=== PATIENT | male | born 1980 | race Caucasian/White ===

== ENCOUNTER → 2017-07-31 | Outpatient (CLI) | payer OTHER ==
--- NOTE | 2017-07-31 09:59 | XR ---
Right wrist HISTORY: Trauma and pain 4 views of the right wrist, exam correlated to previous exam 07/22/2017 Bone mineralization, joint spaces and alignment are maintained. IMPRESSION: No fracture or dislocation evident. Consider wrist MRI for persistent symptoms.
== END | disposition home or self-care (01) ==
LOC: RADXRMAIN 09:41
PROVIDERS: ATTEND Emergency Medicine
DX: S63.501D Unspecified sprain of right wrist, subsequent encounter (principal)

== ENCOUNTER 2020-10-30 13:04 | Emergency (ER) | payer OTHER ==
[2020-10-30 13:09] VITALS: TEMP 98.7
[2020-10-30] MEDS ORDERED: LIDOCAINE 1% INJ 10MG/ML (20 ML MDV) SQ ONE (13:15)
[2020-10-30] MEDS ORDERED: MORPHINE SULFATE 2 MG/ML SYRINGE IM STA (13:15)
[2020-10-30] MEDS ORDERED: DIPH,PERTUS(ACELL)TETVAC-LF 0.5 ML VIAL IM ONE (13:28)
[2020-10-30] MEDS ORDERED: BACITRACIN OINT 1 EACH PACKET TOPICAL ONE (13:37)
--- NOTE | 2020-10-30 13:37 | ED ---
Upper Extremity HPI - General Chief Complaint: Extremity Injury, Upper Stated Complaint: Horse shoe nailed through finger Source: patient, RN notes reviewed Mode of arrival: ambulatory Limitations: no limitations - History of Present Illness Initial Comments: Patient is a 40-year-old male that presents to emergency department after getting a nail stuck in his left thumb. He noted that he was trying to nail a wooden horse shoe to a headboard and the nail must had not twisted it went into his thumb. There is clean entry and exit wounds but through the nail. He stated pain is about 8 out of 10 currently and has been constant. He did not take anything for pain at home. He was in no apparent distress or pain and had a good sense of humor walling up in bed. He denied any chest pain first breath headache nausea vomiting diarrhea constipation fever fatigue chills. - Related Data Home Medications Medication Instructions Recorded Confirmed Atorvastatin [Lipitor] 10 mg PO DAILY 07/22/17 07/22/17 Levothyroxine Sodium [Synthroid] 250 mcg PO DAILY 07/22/17 07/22/17 Losartan [Cozaar] 50 mg PO DAILY 07/22/17 07/22/17 allopurinoL [Zyloprim] 300 mg PO DAILY 07/22/17 07/22/17 Previous Rx's Medication Instructions Recorded Cephalexin [Keflex] 500 mg PO Q6HR #20 cap 10/30/20 Allergies Allergy/AdvReac Type Severity Reaction Status Date / Time No Known Allergies Allergy Verified 10/30/20 13:09 Review of Systems ROS Statement: Those systems with pertinent positive or pertinent negative responses have been documented in the HPI. ROS Other: All systems not noted in ROS Statement are negative. Past Medical History Past Medical History: Hyperlipidemia, Hypertension History of Any Multi-Drug Resistant Organisms: None Reported Past Surgical History: Appendectomy, Hernia Repair Past Psychological History: Anxiety Smoking Status: Never smoker Past Alcohol Use History: Rare Past Drug Use History: None Reported General Exam Limitations: no limitations General appearance: alert, in no apparent distress Head exam: Present: atraumatic, normocephalic, normal inspection Eye exam: Present: normal appearance, PERRL, EOMI. Absent: scleral icterus, conjunctival injection, periorbital swelling ENT exam: Present: normal exam, mucous membranes moist Neck exam: Present: normal inspection. Absent: tenderness, meningismus, lymphadenopathy Respiratory exam: Present: normal lung sounds bilaterally. Absent: respiratory distress, wheezes, rales, rhonchi, stridor Cardiovascular Exam: Present: regular rate, normal rhythm, normal heart sounds. Absent: systolic murmur, diastolic murmur, rubs, gallop, clicks GI/Abdominal exam: Present: soft, normal bowel sounds. Absent: distended, tenderness, guarding, rebound, rigid Extremities exam: Present: normal inspection (Patient has a finishing nail or nail that entered to the volar aspect of the left thumb and exited through the left thumbnail. There is no blood. The nail still attached to the one or shoe.), full ROM, normal capillary refill. Absent: tenderness, pedal edema, joint swelling, calf tenderness Neurological exam: Present: alert, oriented X3, CN II-XII intact Psychiatric exam: Present: normal affect, normal mood Skin exam: Present: warm, dry, intact, normal color. Absent: rash Course Vital Signs 10/30/20 13:07 Temperature 98.7 F Pulse Rate 80 Respiratory 20 Rate Blood Pressure 162/98 O2 Sat by Pulse 99 Oximetry Procedures - Forgein Body Removal Soft Tissue Consent Obtained: verbal consent Site: hand Anesthetic Used: lidocaine 1% Amount (mLs): 3 Foreign Body Suspected: Metal Foreign Body Removed: yes Foreign Body Removal Technique: Other (Wire and needle-nose pliers) Patient Tolerated Procedure: well, no complications Medical Decision Making - Medical Decision Making Patient is a 32-year-old male with a finishing up to his left thumb. X-ray ordered. Pain medication ordered. patient was given tetanus vaccine as he did not know the last time he got 1. Case discussed with Dr. Theodore, was decided the patient discharged home with conservative management. Disposition Clinical Impression: Foreign body of hand, left Disposition: HOME SELF-CARE Condition: Stable Instructions (If sedation given, give patient instructions): Soft Tissue Foreign Body (ED) Additional Instructions: Please return to the Emergency Department if symptoms worsen or any other concerns. Follow-up with primary care 1-2 days. Take pain medication [id number] as needed for management. Take antibiotics as prescribed until complete. Is patient prescribed a controlled substance at d/c from ED?: No Referrals: Amando Chamberlain MD [Primary Care Provider] - 1-2 days Time of Disposition: 13:45
--- NOTE | 2020-10-30 13:44 | XR ---
RESULT: HISTORY: Form body in left thumb TECHNIQUE: 3 views of the left finger/thumb were obtained. COMPARISON: None. FINDINGS: There is a 2.9 cm curvilinear radiopaque foreign body/nail overlying the thumb distal phalangeal tuft . No displaced fracture or dislocation is seen. The joint spaces are otherwise preserved. IMPRESSION: Radiopaque foreign body/nail about the thumb distal phalanx. The nail appears to traverse the soft ti ssues, sparing the bone, however cannot be ascertained. No displaced fracture.
[2020-10-30 14:09] VITALS: BP 109/72; PULSE 71; RESP 18
== END 2020-10-30 14:08 | disposition home or self-care (01) ==
LOC: EC 13:04
DX: S60.352A Superficial foreign body of left thumb, initial encounter (principal); I10 Essential (primary) hypertension; E78.5 Hyperlipidemia, unspecified; Z79.890 Hormone replacement therapy; Z79.899 Other long term (current) drug therapy; Z23 Encounter for immunization; W45.0XXA Nail entering through skin, initial encounter
CPT/HCPCS: 73140; 90715; 99283; 20520; 90471; 96372; J2001; J2270

== ENCOUNTER 2021-06-09 14:19 | Emergency (ER) | payer OTHER ==
[2021-06-09] MEDS ORDERED: ONDANSETRON 4 MG/2 ML VIAL IVP STA (14:47)
[2021-06-09] MEDS ORDERED: SODIUM CHLORIDE 0.9% 1,000 ML IV STA (14:47)
[2021-06-09] MEDS ORDERED: MORPHINE SULFATE 4 MG/ML SYRINGE IV STA (14:47)
[2021-06-09 15:19] LABS: Basophils # (A) 0.1 k/uL (0-0.2); Basophils % (A) 1 %; Eosinophils # (A) 0.3 k/uL (0-0.7); Eosinophils % (A) 3 %; HCT 39.2 % (39.0-53.0); HGB 13.6 gm/dL (13.0-17.5); Lymphocytes % (A) 29 %; MCH 31.1 pg (25.0-35.0); MCHC 34.8 g/dL (31.0-37.0); MCV 89.6 fL (80.0-100.0); Mean Platelet Volume 7.6; Monocytes # (A) 0.7 k/uL (0-1.0); Monocytes % (A) 7 %; Neutrophils # (A) 5.8 k/uL (1.3-7.7); Neutrophils % (A) 57 %; Platelet Count 286 k/uL (150-450); RBC 4.38 m/uL (4.30-5.90); RDW 12.3 % (11.5-15.5); WBC 10.2 k/uL (3.8-10.6)
[2021-06-09 15:27] LABS: ALT 51 U/L (4-49); AST 43 U/L (17-59); African American GFR (CKD) >90 (>60 ml/min/1.73 sqM); Albumin 4.8 g/dL (3.5-5.0); Alkaline Phosphatase 67 U/L (38-126); Anion Gap 11 mmol/L; Blood Urea Nitrogen 16 mg/dL (9-20); Calcium 9.7 mg/dL (8.4-10.2); Carbon Dioxide 23 mmol/L (22-30); Chloride 104 mmol/L (98-107); Glucose 109 mg/dL (74-99); Lipase 98 U/L (23-300); Non-African American GFR(CKD) >90 (>60 ml/min/1.73 sqM); Potassium 4.1 mmol/L (3.5-5.1); Sodium 138 mmol/L (137-145); Total Bilirubin 0.6 mg/dL (0.2-1.3); Total Protein 7.7 g/dL (6.3-8.2)
[2021-06-09] MEDS ORDERED: diphenhydrAMINE 50 MG/ML 1 ML VIAL IVP STA (15:50)
[2021-06-09] MEDS ORDERED: METOCLOPRAMIDE 5 MG/ML 2 ML VIAL IVP STA (15:50)
--- NOTE | 2021-06-09 16:06 | CT ---
EXAMINATION TYPE: CT abdomen pelvis wo con DATE OF EXAM: 06/09/2021 COMPARISON: None HISTORY: Left sided pain with nausea. CT DLP: 1059 mGycm Examination of the solid and hollow viscera is limited given the lack of contrast. FINDINGS: LUNG BASES: No evidence for nodule. No evidence for infiltrate. LIVER/GB: The gallbladder is unremarkable. No space-occupying hepatic lesion. There is hepatic steato sis. PANCREAS: No pancreatic mass identified. No inflammatory process seen. SPLEEN: No evidence for splenomegaly. No intrasplenic lesions seen. ADRENALS: No adrenal nodules identified. No evidence for thickening. KIDNEYS: Mild left-sided hydronephrosis secondary to a 2 mm calculus which appears to reside within t he urinary bladder at this time. No additional calculi present. BOWEL: Appendectomy changes noted. No evidence of bowel obstruction. No inflammatory process. Lymph nodes: No evidence for adenopathy greater than 1 cm. Abdominal aorta: Atheromatous changes seen. No evidence for aneurysm. Genital organs: No significant abnormality. Other: No significant abnormality. IMPRESSION: Mild left-sided hydronephrosis secondary to a 2 mm calculus which appears to reside within the urinar y bladder at this time.
[2021-06-09 16:43] LABS: Appearance,Urine Clear (Clear); Bilirubin,Urine Negative (Negative); Blood,Urine Large (Negative); Color,Urine Yellow; Glucose,Urine (UA) Negative (Negative); Ketones,Urine Negative (Negative); Leukocyte Esterase,Urine Negative (Negative); Mucus,Urine Few /hpf; Nitrite,Urine Negative (Negative); Protein,Urine Negative (Negative); RBC,Urine 99 /hpf (0-5); Specific Gravity,Urine 1.013 (1.001-1.035); Urobilinogen,Urine <2.0 mg/dL (<2.0); WBC,Urine <1 /hpf (0-5)
--- NOTE | 2021-06-09 16:53 | ED ---
Abdominal Pain HPI - General Chief Complaint: Abdominal Pain Stated Complaint: back pain Source: EMS Mode of arrival: EMS Limitations: no limitations - History of Present Illness Initial Comments: Patient is a 41-year-old male presents emergency room with reported left flank pain. He states that he was at work when he had sudden onset of placed flank pain that radiates around to his left testicle. No history of similar in the past. Denies any provocative factors. Denies dysuria, hematuria or difficulty voiding. No history of kidney stones. Denies any bowel complaints. No fevers or chills. Pain was 10 out of 10 and therefore EMS was called. They did give him 15 mg of Toradol and states that he did have some improvement in his pain. He denies ripping or tearing sensation to his back. No numbness, tingling or weakness into his legs. No chest pain or shortness of breath. No other alleviating, precipitating or modifying factors - Related Data Home Medications Medication Instructions Recorded Confirmed Atorvastatin [Lipitor] 10 mg PO DAILY 07/22/17 06/09/21 allopurinoL [Zyloprim] 300 mg PO DAILY 07/22/17 06/09/21 Citalopram Hydrobromide [CeleXA] 20 mg PO DAILY 06/09/21 06/09/21 Levothyroxine Sodium 100 mcg PO DAILY 06/09/21 06/09/21 Losartan Potassium 100 mg PO DAILY 06/09/21 06/09/21 amLODIPine [Norvasc] 2.5 mg PO DAILY 06/09/21 06/09/21 Previous Rx's Medication Instructions Recorded HYDROcodone/APAP 7.5-325MG [Rena Lara 1 tab PO Q6HR PRN 3 Days #12 tab 06/09/21 7.5-325] Allergies Allergy/AdvReac Type Severity Reaction Status Date / Time No Known Allergies Allergy Verified 06/09/21 15:24 Review of Systems ROS Statement: Those systems with pertinent positive or pertinent negative responses have been documented in the HPI. ROS Other: All systems not noted in ROS Statement are negative. Past Medical History Past Medical History: Hyperlipidemia, Hypertension History of Any Multi-Drug Resistant Organisms: None Reported Past Surgical History: Appendectomy, Hernia Repair Past Psychological History: Anxiety Smoking Status: Never smoker Past Alcohol Use History: Rare Past Drug Use History: None Reported General Exam Limitations: no limitations General appearance: alert, in no apparent distress Head exam: Present: atraumatic, normocephalic, normal inspection Eye exam: Present: normal appearance, PERRL, EOMI. Absent: scleral icterus, conjunctival injection, periorbital swelling ENT exam: Present: normal exam, mucous membranes moist Neck exam: Present: normal inspection. Absent: tenderness, meningismus, lymphadenopathy Respiratory exam: Present: normal lung sounds bilaterally. Absent: respiratory distress, wheezes, rales, rhonchi, stridor Cardiovascular Exam: Present: regular rate, normal rhythm, normal heart sounds. Absent: systolic murmur, diastolic murmur, rubs, gallop, clicks GI/Abdominal exam: Present: soft, normal bowel sounds. Absent: distended, tenderness, guarding, rebound, rigid Extremities exam: Present: normal inspection, full ROM, normal capillary refill. Absent: tenderness, pedal edema, joint swelling, calf tenderness Back exam: Present: CVA tenderness (L) Neurological exam: Present: alert, oriented X3, CN II-XII intact Psychiatric exam: Present: normal affect, normal mood Skin exam: Present: warm, dry, intact, normal color. Absent: rash Course Vital Signs 06/09/21 06/09/21 06/09/21 14:22 15:51 17:10 Temperature 97.6 F 98.1 F Pulse Rate 70 86 78 Respiratory 20 20 18 Rate Blood Pressure 145/100 132/78 112/64 O2 Sat by Pulse 99 99 94 L Oximetry Medical Decision Making - Medical Decision Making Upon arrival patient is placed into room 2. A thorough history and physical exam was performed. Patient was given 1 mg of Dilaudid for pain control and 4 mg of Zofran for nausea. He is also given a liter bolus of normal saline. Laboratory studies are conducted and the patient went for a CT of his abdomen and pelvis. Laboratory studies reviewed and demonstrate large blood in the urine. Kidney function normal. CT of the abdomen and pelvis demonstrates mild left sided hydronephrosis secondary to 2 mm calculus. Appears reside within the urinary bladder at this time. Patient is reevaluated does have improvement in his pain. The diagnosis, differential treatment options are discussed with the patient. At this time he feels comfortable to be discharged home. Patient will be given a short prescription for Rena Lara for any residual pain. I recommended encouraging water intake. He may alternate taking the Rena Lara with Motrin. Side effect profiles discussed with the patient. He is provided with urology on- call. Recommend he follow up with his primary care doctor in 2-4 days and urology as needed. Return to the emergency room for any new or worsening symptoms per patient agree to treatment was discharged home in stable condition - Lab Data Result diagrams: 06/09/21 15:03 06/09/21 15:03 Lab Results 06/09/21 06/09/21 06/09/21 Range/Units 15:03 15:03 15:03 WBC 10.2 (3.8-10.6) k/uL RBC 4.38 (4.30-5.90) m/uL Hgb 13.6 (13.0-17.5) gm/dL Hct 39.2 (39.0-53.0) % MCV 89.6 (80.0-100.0) fL MCH 31.1 (25.0-35.0) pg MCHC 34.8 (31.0-37.0) g/dL RDW 12.3 (11.5-15.5) % Plt Count 286 (150-450) k/uL MPV 7.6 Neutrophils % 57 % Lymphocytes % 29 % Monocytes % 7 % Eosinophils % 3 % Basophils % 1 % Neutrophils # 5.8 (1.3-7.7) k/uL Lymphocytes # 3.0 (1.0-4.8) k/uL Monocytes # 0.7 (0-1.0) k/uL Eosinophils # 0.3 (0-0.7) k/uL Basophils # 0.1 (0-0.2) k/uL Sodium 138 (137-145) mmol/L Potassium 4.1 (3.5-5.1) mmol/L Chloride 104 (98-107) mmol/L Carbon Dioxide 23 (22-30) mmol/L Anion Gap 11 mmol/L BUN 16 (9-20) mg/dL Creatinine 0.91 (0.66-1.25) mg/dL Est GFR (CKD-EPI)AfAm >90 (>60 ml/min/1.73 sqM) Est GFR (CKD-EPI)NonAf >90 (>60 ml/min/1.73 sqM) Glucose 109 H (74-99) mg/dL Calcium 9.7 (8.4-10.2) mg/dL Total Bilirubin 0.6 (0.2-1.3) mg/dL AST 43 (17-59) U/L ALT 51 H (4-49) U/L Alkaline Phosphatase 67 (38-126) U/L Total Protein 7.7 (6.3-8.2) g/dL Albumin 4.8 (3.5-5.0) g/dL Lipase 98 (23-300) U/L Urine Color Yellow Urine Appearance Clear (Clear) Urine pH 6.0 (5.0-8.0) Ur Specific [place] 1.013 (1.001-1.035) Urine Protein Negative (Negative) Urine Glucose (UA) Negative (Negative) Urine Ketones Negative (Negative) Urine Blood Large H (Negative) Urine Nitrite Negative (Negative) Urine Bilirubin Negative (Negative) Urine Urobilinogen <2.0 (<2.0) mg/dL Ur Leukocyte Esterase Negative (Negative) Urine RBC 99 H (0-5) /hpf Urine WBC <1 (0-5) /hpf Urine Mucus Few H (None) /hpf Disposition Clinical Impression: Bladder stone, Hydronephrosis Disposition: HOME SELF-CARE Condition: Stable Instructions (If sedation given, give patient instructions): Kidney Stones (ED) Additional Instructions: Please follow up with your primary care doctor in 2-4 days. Increase water intake. Take Motrin 600 mg every 6 hours as needed for pain. May take Rena Lara when not driving or operating heavy machinery. Return to the emergency room for any new or worsening symptoms Prescriptions: HYDROcodone/APAP 7.5-325MG [Rena Lara 7.5-325] 1 tab PO Q6HR PRN 3 Days #12 tab PRN Reason: Pain Is patient prescribed a controlled substance at d/c from ED?: Yes When asked, does pt state using other controlled substances?: No If prescribed controlled substance>3 days was MAPS reviewed?: Prescribed <3 Days If opioid is for acute pain is fill amount 7 days or less?: Yes If Rx opioid, was Start Talking consent form obtained?: Yes Referrals: Amando Chamberlain MD [Primary Care Provider] - 1-2 days Garry Cheema MD [STAFF PHYSICIAN] - 1-2 days Time of Disposition: 16:53
[2021-06-09 17:12] VITALS: BP 112/64; PULSE 78; RESP 18; TEMP 98.1
== END 2021-06-09 17:12 | disposition home or self-care (01) ==
LOC: EC 14:19
DX: N13.2 Hydronephrosis with renal and ureteral calculous obstruction (principal); N21.0 Calculus in bladder; I10 Essential (primary) hypertension; E78.5 Hyperlipidemia, unspecified; Z79.899 Other long term (current) drug therapy; Z90.49 Acquired absence of other specified parts of digestive tract; F41.9 Anxiety disorder, unspecified
CPT/HCPCS: 36415; 80053; 83690; 85025; 81001; 74176; 99284; 96374; 96375 ×2; 96361; J2270; J1200; J2405

== ENCOUNTER → 2023-05-16 | Outpatient (CLI) | payer OTHER ==
--- NOTE | 2023-05-16 11:44 | XR ---
EXAMINATION TYPE: XR hand complete RT DATE OF EXAM: 05/16/2023 COMPARISON: NONE HISTORY: First digit pain TECHNIQUE: Three views are submitted. FINDINGS: The osseous structures are intact. The joint spaces are preserved and there is no acute fracture or dislocation. Linear density in the soft tissues adjacent to the base proximal phalanx fourth digit c ould represent chronic foreign body. Correlate for chronic flexion deformity second digit DIP joint. Could be positional. IMPRESSION: 1. No definite acute fracture or dislocation if symptoms persist, follow-up study in 7 to 10 days wo uld be suggested. 2. Linear density adjacent base proximal phalanx fourth digit may represent tiny chronic foreign body .
--- NOTE | 2023-05-16 11:46 | XR ---
EXAMINATION TYPE: XR wrist complete RT DATE OF EXAM: 05/16/2023 COMPARISON: NONE HISTORY: Pain TECHNIQUE: Four views submitted. FINDINGS: The osseous structures are intact. The joint spaces are preserved and there is no acute fracture or dislocation. Previously noted linear density adjacent base of fourth digit suggestive chronic foreig n body. IMPRESSION: 1. No definite acute fracture or dislocation if symptoms persist, follow-up study in 7 to 10 days wo uld be suggested
== END | disposition home or self-care (01) ==
LOC: RADXRMAIN 11:18
PROVIDERS: ATTEND Emergency Medicine
DX: S00.83XA Contusion of other part of head, initial encounter (principal); S60.221A Contusion of right hand, initial encounter; S60.211A Contusion of right wrist, initial encounter; X58.XXXA Exposure to other specified factors, initial encounter